=== PATIENT | male | born 1930 | race Caucasian/White ===

== ENCOUNTER 2016-07-14 09:19 | Outpatient (CLI) | payer MEDICARE, OTHER | END 2016-07-14 09:20 | disposition home or self-care (01) | DX: I10 Essential (primary) hypertension (principal); Z79.899 Other long term (current) drug therapy ==

== ENCOUNTER 2016-10-14 11:11 | Emergency (ER) | payer MEDICARE, OTHER ==
[2016-10-14 11:19] VITALS: BP 129/67
--- NOTE | 2016-10-14 11:56 | ED Physician Documentation ---
PD HPI UPPER EXT INJURY - Stated complaint Stated Complaint: GLF L ARM LAC - Chief complaint Chief Complaint: Ext Problem - History obtained from History obtained from: Patient, Family - History of Present Illness Location: Left, Forearm Type of injury: Fall Where injury occurred: Home Timing - onset: Yesterday Timing - duration: Days (1) Timing - details: Gradual onset, Still present Improved by: Rest, Dressing Worsened by: Moving, Palpating Associated symptoms: Discolored. No: Weakness, Numbness, Tingling Contributing factors: No: Anticoagulated Similar symptoms before: Diagnosis (skin tear) Recently seen: Not recently seen - Additonal information Additional information: 86-year-old male with a history of pulmonary hypertension comes into the emergency department today after having a fall yesterday injuring his left forearm. He did not have any other injury related to the fall and he states that he tripped. He has an abrasion to his forearm and he is out of date on his tetanus. He went to go see Dr. Smith yesterday to get a tetanus booster and his office was closed. Today he is here to get the tetanus booster. He was able to dress the wound adequately. He does have a prior history of cellulitis. Review of Systems Constitutional: denies: Fever, Chills, Myalgias Eyes: denies: Decreased vision Ears: denies: Ear pain Nose: denies: Congestion Throat: denies: Sore throat Cardiac: denies: Chest pain / pressure Respiratory: denies: Cough GI: denies: Abdominal Pain, Nausea, Vomiting : denies: Dysuria Skin: denies: Rash Musculoskeletal: reports: Extremity pain. denies: Neck pain, Back pain Neurologic: denies: Generalized weakness, Focal weakness, Difficulty speaking PD PAST MEDICAL HISTORY - Past Medical History Cardiovascular: None Respiratory: Pneumonia Neuro: None Endocrine/Autoimmune: None Psych: None Musculoskeletal: Scoliosis, Chronic back pain - Past Surgical History Past Surgical History: Yes Ortho: Knee replacement - Present Medications Home Medications: Ambulatory Orders Medication Instructions Recorded Confirmed Aspirin/Calcium Carbonate/Mag 325 mg PO DAILY 05/24/13 10/14/16 [Aspirin Non Irrit 325 mg Tab] hydroCHLOROthiazide [Hydrodiuril] 25 mg PO DAILY 10/14/16 10/14/16 - Allergies Allergies/Adverse Reactions: Allergies Allergy/AdvReac Type Severity Reaction Status Date / Time melon Allergy Intermediate Respiratory Uncoded 10/14/16 11:19 - Social History Does the pt smoke?: No Smoking Status: Never smoker Does the pt drink ETOH?: No Does the pt have substance abuse?: No - Immunizations Immunizations are current?: Yes PD ED PE NORMAL - Vitals Vital signs reviewed: Yes (normal ) - General General: No acute distress, Well developed/nourished - HEENT HEENT: Atraumatic, PERRL - Neck Neck: Supple, no meningeal sign - Respiratory Respiratory: No respiratory distress - Derm Derm: Normal color, Warm and dry, No rash - Extremities Extremities: Other (over the volar surface of the left forearm is an area of abrasion with surronding eythema consistent with bruising and no drainage from the area. The abrasions are clean and the wound has no drainage. Distal n/v is intact. ) - Neuro Neuro: No motor deficit, No sensory deficit - Psych Psych: Normal mood, Normal affect Results - Vitals Vitals: Vital Signs - 24 hr 10/14/16 11:17 Temperature 36.3 C L Heart Rate 62 Respiratory 18 Rate Blood Pressure 129/67 O2 Saturation 94 Oxygen O2 Source Room air PD MEDICAL DECISION MAKING - ED course Complexity details: considered differential, d/w patient, d/w family ED course: 86-year-old male with a deep abrasion to his left forearm is out of date on his tetanus. Wound is some erythematous and the patient has had a history of cellulitis previously. He is instructed to return to the emergency department should he develop anything that seems like cellulitis. He is given a tetanus booster. Departure - Departure Disposition: 01 Home, Self Care Clinical Impression: Forearm abrasion Qualifiers: Encounter type: initial encounter Laterality: left Qualified Code(s): S50.812A - Abrasion of left forearm, initial encounter Condition: Stable Instructions: ED Abrasion Follow-Up: Fermín Smith MD [Primary Care Provider] -
[2016-10-14] MEDS ORDERED: TETANUS/DIPHTHERIA/PERTUSSIS 0.5 ML SYRINGE IM ONE ×2 (11:59→12:00)
== END 2016-10-14 12:07 | disposition home or self-care (01) ==
LOC: ED 11:11
DX: S50.812A Abrasion of left forearm, initial encounter (principal); W01.0XXA Fall on same level from slipping, tripping and stumbling without subsequent striking against object, initial encounter; Y92.009 Unspecified place in unspecified non-institutional (private) residence as the place of occurrence of the external cause; Z23 Encounter for immunization; I27.2 Other secondary pulmonary hypertension; Z96.659 Presence of unspecified artificial knee joint; Z79.82 Long term (current) use of aspirin
CPT/HCPCS: 90471; 99283

== ENCOUNTER 2017-07-19 09:16 | Outpatient (CLI) | payer MEDICARE, OTHER ==
[2017-07-19 18:09] LABS: BASOPHILS % (AUTO) 0.5 %; EOSINOPHILS # (AUTO) 0.1 10^3/uL (0.0-0.7); EOSINOPHILS % (AUTO) 1.9 %; HGB - HEMOGLOBIN 14.7 g/dL (14.0-18.0); LYMPHOCYTES # (AUTO) 2.6 10^3/uL (1.5-3.5); LYMPHOCYTES % (AUTO) 51.3 %; MEAN CORPUSCULAR HEMOGLOBIN 32.1 pg (27.0-31.0); MEAN CORPUSCULAR HGB CONC 33.2 g/dL (32.0-36.0); MEAN CORPUSCULAR VOLUME 96.5 fL (80.0-94.0); MEAN PLATELET VOLUME 9.3 fL (7.4-11.4); MONOCYTES # (AUTO) 0.4 10^3/uL (0.0-1.0); MONOCYTES % (AUTO) 7.7 %; NEUTROPHILS % (AUTO) 38.6 %; PLT - PLATELET COUNT 216 10^3/uL (130-450); RED BLOOD COUNT 4.59 10^6/uL (4.70-6.10); RED CELL DISTRIBUTION WIDTH 13.7 % (12.0-15.0); WHITE BLOOD COUNT 5.1 x10^3/uL (4.8-10.8)
[2017-07-19 18:23] LABS: ALBUMIN 4.1 g/dL (3.2-5.5); ALBUMIN/GLOBULIN RATIO 1.6 (1.0-2.2); ALKALINE PHOSPHATASE 46 IU/L (42-121); ALT ALANINE AMINOTRANSFERASE 23 IU/L (10-60); AST ASPARTATE AMINOTRANSFERASE 30 IU/L (10-42); BILIRUBIN,TOTAL 0.7 mg/dL (0.2-1.0); BUN - BLOOD UREA NITROGEN 18 mg/dL (6-20); CALCIUM 9.2 mg/dL (8.5-10.3); CARBON DIOXIDE - CO2 29 mmol/L (21-32); CHLORIDE 102 mmol/L (101-111); CHOL/HDL RATIO 5.4 (<5.0); CHOLESTEROL 198 mg/dL; CREATININE 1.2 mg/dL (0.6-1.2); GFR - MDRD 58 (>89); GLUCOSE 92 mg/dL (70-100); HDL CHOLESTEROL 37 mg/dL; LDL CHOLESTEROL,CALCULATED 126 mg/dL; LDL/HDL RATIO 3.4 (<3.6); SODIUM 137 mmol/L (135-145); TOTAL PROTEIN 6.7 g/dL (6.7-8.2); VLDL CHOLESTEROL 35 mg/dL
== END 2017-07-19 09:17 | disposition home or self-care (01) ==
LOC: LAB.F 09:16
PROVIDERS: ATTEND Internal Medicine
DX: I34.0 Nonrheumatic mitral (valve) insufficiency (principal); E78.5 Hyperlipidemia, unspecified; I27.20 Pulmonary hypertension, unspecified
CPT/HCPCS: 36415; 80053; 80061; 83721; 85025

== ENCOUNTER 2018-10-14 10:24 | Outpatient (CLI) | payer MEDICARE, OTHER ==
[2018-10-14 10:39] LABS: BASOPHILS % (AUTO) 0.5 %; EOSINOPHILS # (AUTO) 0.1 10^3/uL (0.0-0.7); EOSINOPHILS % (AUTO) 1.1 %; HGB - HEMOGLOBIN 14.7 g/dL (14.0-18.0); LYMPHOCYTES # (AUTO) 2.9 10^3/uL (1.5-3.5); LYMPHOCYTES % (AUTO) 47.9 %; MEAN CORPUSCULAR HEMOGLOBIN 32.4 pg (27.0-31.0); MEAN CORPUSCULAR HGB CONC 33.4 g/dL (32.0-36.0); MEAN CORPUSCULAR VOLUME 96.9 fL (80.0-94.0); MEAN PLATELET VOLUME 9.7 fL (7.4-11.4); MONOCYTES # (AUTO) 0.6 10^3/uL (0.0-1.0); MONOCYTES % (AUTO) 9.3 %; NEUTROPHILS # (AUTO) 2.5 10^3/uL (1.5-6.6); NEUTROPHILS % (AUTO) 40.7 %; PLT - PLATELET COUNT 231 10^3/uL (130-450); RED BLOOD COUNT 4.54 10^6/uL (4.70-6.10); RED CELL DISTRIBUTION WIDTH 13.8 % (12.0-15.0); WHITE BLOOD COUNT 6.1 x10^3/uL (4.8-10.8)
[2018-10-14 10:57] LABS: ALBUMIN 4.3 g/dL (3.2-5.5); ALBUMIN/GLOBULIN RATIO 1.7 (1.0-2.2); BILIRUBIN,TOTAL 0.8 mg/dL (0.2-1.0); CALCIUM 9.5 mg/dL (8.5-10.3); CREATININE 1.2 mg/dL (0.6-1.2); TOTAL PROTEIN 6.9 g/dL (6.7-8.2)
[2018-10-14 11:33] LABS: THYROID STIMULATING HORMONE 4.13 uIU/mL (0.34-5.60)
[2018-10-14 11:35] LABS: FREE T4 (FREE THYROXINE) 0.64 ng/dL (0.58-1.64)
== END 2018-10-14 10:25 | disposition home or self-care (01) ==
LOC: LAB 10:24
PROVIDERS: ATTEND Family Medicine
DX: R63.4 Abnormal weight loss (principal)
CPT/HCPCS: 36415; 80053; 84439; 84443; 84481; 85025

== ENCOUNTER 2019-04-20 11:45 | Emergency (ER) | payer MEDICARE, OTHER ==
[2019-04-20 12:01] VITALS: BP 139/65
--- NOTE | 2019-04-20 13:07 | ED Physician Documentation ---
PD HPI HEENT - Stated complaint Stated Complaint: L EAR PX - Chief complaint Chief Complaint: Heent - History obtained from History obtained from: Patient - History of Present Illness Timing - onset: Other (About 2 weeks of left ear pain without temporal pain or difficulty hearing, the pain does radiate a little bit towards the eye. He has had temporal arteritis a couple of times and worries about a recurrence but admits this feels different. No new visual deficit.) Review of Systems Constitutional: denies: Fever, Chills Eyes: denies: Loss of vision, Decreased vision, Photophobia, Discharge, Irritation Ears: reports: Ear pain. denies: Loss of hearing, Drainage/discharge Nose: denies: Rhinorrhea / runny nose PD PAST MEDICAL HISTORY - Past Medical History Cardiovascular: None Respiratory: Pneumonia Endocrine/Autoimmune: None Psych: None Musculoskeletal: Scoliosis, Chronic back pain - Past Surgical History Past Surgical History: Yes Ortho: Knee replacement - Present Medications Home Medications: Ambulatory Orders Medication Instructions Recorded Confirmed Aspirin/Calcium Carbonate/Mag 325 mg PO DAILY 05/24/13 10/14/16 [Aspirin Non Irrit 325 mg Tab] hydroCHLOROthiazide [Hydrodiuril] 25 mg PO DAILY 10/14/16 10/14/16 Amoxicillin 500 mg PO TID #30 capsule 04/20/19 - Allergies Allergies/Adverse Reactions: Allergies Allergy/AdvReac Type Severity Reaction Status Date / Time bee pollen Allergy Unknown Verified 04/20/19 11:59 melon Allergy Intermediate Respiratory Uncoded 04/20/19 11:59 - Social History Does the pt smoke?: No Smoking Status: Never smoker Does the pt drink ETOH?: No Does the pt have substance abuse?: No - Immunizations Immunizations are current?: Yes PD ED PE NORMAL - Vitals Vital signs reviewed: Yes - General General: Alert and oriented X 3, No acute distress - HEENT HEENT: Other (Does have moderate left otitis media, there is no tenderness of the temporal artery.) - Neck Neck: Supple, no meningeal sign, No bony TTP - Neuro Neuro: Alert and oriented X 3, Normal speech Results - Vitals Vitals: Vital Signs - 24 hr 04/20/19 11:59 Temperature 36.6 C Heart Rate 70 Respiratory 18 Rate Blood Pressure 139/65 H O2 Saturation 96 Oxygen O2 Source Room air PD MEDICAL DECISION MAKING - ED course ED course: He was concerned about temporal arteritis but does have a left otitis media which I think is causative. I offered to do a sed rate regardless which she declined and will follow up with his doctor if not better. Departure - Departure Disposition: 01 Home, Self Care Clinical Impression: LOM (left otitis media) Qualifiers: Otitis media type: suppurative Chronicity: acute Recurrence: non-recurrent Spontaneous tympanic membrane rupture: without spontaneous rupture Qualified Code(s): H66.002 - Acute suppurative otitis media without spontaneous rupture of ear drum, left ear Condition: Good Record reviewed to determine appropriate education?: Yes Instructions: ED Otitis Media Acute Adult Prescriptions: Amoxicillin 500 mg PO TID #30 capsule Comments: Recheck with your doctor in a week if not better, return for new or worsening symptoms.
== END 2019-04-20 13:10 | disposition home or self-care (01) ==
LOC: ED 11:45
DX: H66.002 Acute suppurative otitis media without spontaneous rupture of ear drum, left ear (principal)
CPT/HCPCS: 99282; 99283

== ENCOUNTER 2019-05-06 11:33 | Outpatient (CLI) | payer MEDICARE, OTHER ==
[2019-05-06 11:59] LABS: HGB - HEMOGLOBIN 14.6 g/dL (14.0-18.0); MEAN CORPUSCULAR HEMOGLOBIN 32.2 pg (27.0-31.0); MEAN CORPUSCULAR HGB CONC 33.1 g/dL (32.0-36.0); MEAN CORPUSCULAR VOLUME 97.1 fL (80.0-94.0); MEAN PLATELET VOLUME 9.8 fL (7.4-11.4); RED BLOOD COUNT 4.54 10^6/uL (4.70-6.10); RED CELL DISTRIBUTION WIDTH 13.4 % (12.0-15.0); WHITE BLOOD COUNT 7.5 x10^3/uL (4.8-10.8)
== END 2019-05-06 11:34 | disposition home or self-care (01) ==
LOC: LAB 11:33
PROVIDERS: ATTEND Family Medicine
DX: Z79.899 Other long term (current) drug therapy (principal); H66.90 Otitis media, unspecified, unspecified ear
CPT/HCPCS: 36415; 85027; 85651

== ENCOUNTER 2019-05-09 03:02 | Outpatient (CLI) | payer MEDICARE, OTHER | END 2019-05-09 03:03 | disposition critical access hospital (66) | LOC: EMS 03:02 | PROVIDERS: ATTEND Surgery | DX: R42 Dizziness and giddiness (principal); R11.0 Nausea; R61 Generalized hyperhidrosis | CPT/HCPCS: A0425; A0427 ==

== ENCOUNTER 2019-05-09 03:20 | Emergency (ER) | payer MEDICARE, OTHER ==
[2019-05-09] MEDS ORDERED: SODIUM CHLORIDE 0.9% 1,000 ML IV ONE (03:25)
--- NOTE | 2019-05-09 03:57 | ED Physician Documentation ---
History of Present Illness - Stated complaint Stated Complaint: DIZZY - Chief complaint Chief Complaint: Neuro - History obtained from History obtained from: Patient, Family - History of Present Illness Timing: How many hours ago (approximately 1 hour TAPE SEWER) Pain level now: 3 (left ear) Improved by: rest, IV fluids and zofran (given en route by medics) Worsened by: movement, particularly with turning head - Additonal information Additional information: BIBA for nausea and dizziness. T+R from this ED 04/20 for left OM, was prescribed amoxicillin (completed course 1 week ago). He has had ongoing left ear pain and followed up with PMD few days ago, referred to ENT (initial appointment isn't for a few weeks). Tonight, approximately 1 hour TAPE SEWER, patient got out of bed to use bathroom and had sudden onset of dizziness, sensation of room spinning, associated with nausea. EMS found patient to have SBP in 80s, given IV fluids en route and zofran with improvement in symptoms and resolution of hypotension Review of Systems Constitutional: denies: Fever, Chills, Sweats Ears: reports: Ear pain. denies: Drainage/discharge Cardiac: reports: Reviewed and negative Respiratory: reports: Reviewed and negative GI: reports: Nausea. denies: Abdominal Pain, Vomiting : denies: Dysuria, Frequency Musculoskeletal: denies: Neck pain Neurologic: denies: Generalized weakness, Focal weakness, Numbness, Confused, Altered mental status, Headache, Head injury PD PAST MEDICAL HISTORY - Past Medical History Cardiovascular: None Respiratory: Pneumonia Endocrine/Autoimmune: None Psych: None Musculoskeletal: Scoliosis, Chronic back pain - Past Surgical History Past Surgical History: Yes Ortho: Knee replacement - Present Medications Home Medications: Ambulatory Orders Medication Instructions Recorded Confirmed Meclizine HCl 25 mg PO Q6HR PRN #20 tablet 05/09/19 Ondansetron Odt [Zofran] 4 mg TL Q6H PRN #10 tablet 05/09/19 - Allergies Allergies/Adverse Reactions: Allergies Allergy/AdvReac Type Severity Reaction Status Date / Time bee pollen Allergy Unknown Verified 05/09/19 03:25 melon Allergy Intermediate Respiratory Uncoded 05/09/19 03:25 - Social History Does the pt smoke?: No Smoking Status: Never smoker Does the pt drink ETOH?: No Does the pt have substance abuse?: No - Immunizations Immunizations are current?: Yes PD ED PE NORMAL - Vitals Vital signs reviewed: Yes - General General: Alert and oriented X 3, No acute distress (NAD at rest but appears to be uncomfortable with movement/rotation of head), Well developed/nourished - HEENT HEENT: PERRL, EOMI, Moist mucous membranes, Other (left TM is dull but without bulging or erythema. normal left external auditory canal. right TM mostly obscured by cerumen, but superior-most portion is visible and unremarkable appearance. Moderate amount of cerumen in right external auditory canal with small amount of dried blood in cerumen (he says PMD recently tried to manually extract cerumen)) - Neck Neck: Supple, no meningeal sign - Cardiac Cardiac: RRR, No murmur - Respiratory Respiratory: No respiratory distress, Clear bilaterally - Abdomen Abdomen: Soft, Non tender - Neuro Neuro: Alert and oriented X 3, hand packager 2-12 intact, No motor deficit, No sensory deficit, Normal speech Eye Opening: Spontaneous Motor: Obeys Commands Verbal: Oriented GCS Score: 15 Results - Vitals Vitals: Oxygen O2 Source Room air - Labs Labs: Laboratory Tests 05/09/19 05/09/19 04:35 04:35 WBC 7.2 RBC 4.05 L Hgb 13.0 L Hct 39.5 L MCV 97.5 H MCH 32.1 H MCHC 32.9 RDW 13.8 Plt Count 266 MPV 9.6 Neut # (Auto) 4.9 Lymph # (Auto) 1.6 [place] # (Auto) 0.5 Eos # (Auto) 0.2 Baso # (Auto) 0.0 Absolute Nucleated RBC 0.00 Nucleated RBC % 0.0 Sodium 139 Potassium 4.1 Chloride 103 Carbon Dioxide 27 Anion Gap 9.0 BUN 23 H Creatinine 1.1 Estimated GFR (MDRD) 63 L Glucose 114 H Calcium 8.6 Total Bilirubin 0.9 AST 20 ALT 15 Alkaline Phosphatase 50 Total Protein 6.4 L Albumin 3.7 Globulin 2.7 Albumin/Globulin Ratio 1.4 Lipase 37 PD MEDICAL DECISION MAKING - ED course Complexity details: reviewed results, re-evaluated patient, considered differential, d/w patient, d/w family ED course: modest improvement in symptoms with PO antivert and IV fluids in ED. He continued to have symptoms (dizziness and nausea s/o vertigo) that were distinctly positional and movement-related. Barany maneuvers unsuccessful on first attempt, although on repeat attempt, there was improvement and he was appropriate for discharge Departure - Departure Disposition: 01 Home, Self Care Clinical Impression: Vertigo Condition: Good Instructions: Meclizine, ED Vertigo Unspecified Follow-Up: Bruce Dimas MD [Primary Care Provider] - Prescriptions: Meclizine HCl 25 mg PO Q6HR PRN #20 tablet PRN Reason: Vertigo Ondansetron Odt [Zofran] 4 mg TL Q6H PRN #10 tablet PRN Reason: Nausea / Vomiting Comments: You can try the Kayley maneuver for vertigo. There are many useful videos on Youtube that demonstrate how to perform this at home, such as the [facility] kayley maneuver for left ear video. Discharge Date/Time: 05/09/19 07:50
[2019-05-09] MEDS ORDERED: MECLIZINE 12.5 MG TABLET PO STA (04:25)
[2019-05-09] MEDS ORDERED: ONDANSETRON 4 MG/2 ML VIAL IVP STA (04:26)
[2019-05-09 04:41] LABS: BASOPHILS % (AUTO) 0.4 %; EOSINOPHILS # (AUTO) 0.2 10^3/uL (0.0-0.7); EOSINOPHILS % (AUTO) 2.1 %; LYMPHOCYTES # (AUTO) 1.6 10^3/uL (1.5-3.5); LYMPHOCYTES % (AUTO) 21.4 %; MEAN CORPUSCULAR HEMOGLOBIN 32.1 pg (27.0-31.0); MEAN CORPUSCULAR HGB CONC 32.9 g/dL (32.0-36.0); MEAN CORPUSCULAR VOLUME 97.5 fL (80.0-94.0); MEAN PLATELET VOLUME 9.6 fL (7.4-11.4); MONOCYTES # (AUTO) 0.5 10^3/uL (0.0-1.0); MONOCYTES % (AUTO) 7.5 %; NEUTROPHILS # (AUTO) 4.9 10^3/uL (1.5-6.6); NEUTROPHILS % (AUTO) 68.2 %; PLT - PLATELET COUNT 266 10^3/uL (130-450); RED BLOOD COUNT 4.05 10^6/uL (4.70-6.10); RED CELL DISTRIBUTION WIDTH 13.8 % (12.0-15.0); WHITE BLOOD COUNT 7.2 x10^3/uL (4.8-10.8)
[2019-05-09 04:56] LABS: ALBUMIN 3.7 g/dL (3.2-5.5); ALBUMIN/GLOBULIN RATIO 1.4 (1.0-2.2); BILIRUBIN,TOTAL 0.9 mg/dL (0.2-1.0); CALCIUM 8.6 mg/dL (8.5-10.3); CREATININE 1.1 mg/dL (0.6-1.2); TOTAL PROTEIN 6.4 g/dL (6.7-8.2)
[2019-05-09] MEDS ORDERED: SODIUM CHLORIDE 0.9% 1,000 ML IV STA (05:42)
[2019-05-09 07:54] VITALS: BP 139/71
== END 2019-05-09 07:50 | disposition home or self-care (01) ==
LOC: EDUNIT# → ED 03:20
DX: R42 Dizziness and giddiness (principal); R11.0 Nausea; H61.21 Impacted cerumen, right ear
CPT/HCPCS: 36415; 80053; 83690; 85025; 96361; 96374; 99284; A9270

== ENCOUNTER 2020-01-15 17:18 | Outpatient (CLI) | payer MEDICARE, OTHER | END 2020-01-15 17:19 | disposition home or self-care (01) | LOC: COV 17:18 | PROVIDERS: ATTEND Family Medicine | DX: R53.83 Other fatigue (principal); R09.89 Other specified symptoms and signs involving the circulatory and respiratory systems; Z20.828 Contact with and (suspected) exposure to other viral communicable diseases ==

== ENCOUNTER 2020-03-06 12:42 | Emergency (ER) | payer MEDICARE, OTHER ==
[2020-03-06] MEDS ORDERED: PROPARACAINE 0.5% OPHTH DROPS 15 ML LEFTEYE STA (13:05)
--- NOTE | 2020-03-06 13:06 | ED Physician Documentation ---
PD HPI OPHTHO - Stated complaint Stated Complaint: LT EYE PX - Chief complaint Chief Complaint: Heent - History obtained from History obtained from: Patient - Additional information Additional information: 89-year-old gentleman had an eye problem a few weeks ago and was treated with topical steroids to the right eye by his eye doctor and resolved. About a week ago the left eye became red and progressively draining clear fluid with slightly blurry vision. Over the last few days it become much more painful. He denies fevers. He was seen first at the urgent care and was referred here for concern for possible orbital cellulitis. Review of Systems Constitutional: reports: Reviewed and negative Eyes: reports: Reviewed and negative Ears: reports: Reviewed and negative Nose: reports: Reviewed and negative Throat: reports: Reviewed and negative PD PAST MEDICAL HISTORY - Past Medical History Past Medical History: Yes Cardiovascular: None Respiratory: Pneumonia Neuro: Peripheral neuropathy Endocrine/Autoimmune: None Psych: None Musculoskeletal: Scoliosis, Chronic back pain - Past Surgical History Past Surgical History: Yes Ortho: Knee replacement - Present Medications Home Medications: Ambulatory Orders Medication Instructions Recorded Confirmed Amox/Clav 875/125 [Augmentin] 1 each PO Q12H #14 tablet 03/06/20 Carbidopa/Levodopa 10/100 [Sinemet 1 each PO TID 03/06/20 03/06/20 10 mg/100 mg] Tobramycin/Dexamethasone [Tobradex 1 drops OP QID 7 Days drops.susp 03/06/20 Eye Drops] - Allergies Allergies/Adverse Reactions: Allergies Allergy/AdvReac Type Severity Reaction Status Date / Time bee pollen Allergy Unknown Verified 03/06/20 12:46 melon Allergy Intermediate Respiratory Uncoded 03/06/20 12:46 - Social History Does the pt smoke?: No Smoking Status: Never smoker Does the pt drink ETOH?: No Does the pt have substance abuse?: No - Immunizations Immunizations are current?: Yes PD ED PE NORMAL - Vitals Vital signs reviewed: Yes - General General: Alert and oriented X 3, No acute distress - HEENT HEENT: EOMI (Keron-Pen on the left is 17, no cell or flare in the anterior chamber.), Other (Both eyes are equally reactive with round pupils of normal size about 3 mm. He has a beet red conjunctivitis of the left eye with mild swelling of the periorbital area on the left. No pain with extraocular movements. Finger counting at 10 feet is intact.) - Neck Neck: Supple, no meningeal sign, No bony TTP - Cardiac Cardiac: RRR, No murmur - Respiratory Respiratory: No respiratory distress, Clear bilaterally - Abdomen Abdomen: Non tender - Neuro Neuro: Alert and oriented X 3, Normal speech Results - Vitals Vitals: Vital Signs - 24 hr 03/06/20 03/06/20 12:46 15:08 Temperature 36.5 C 36.8 C Heart Rate 55 L 60 Respiratory 16 16 Rate Blood Pressure 149/67 H 144/72 H O2 Saturation 97 97 Oxygen O2 Source Room air - Labs Labs: Laboratory Tests 03/06/20 03/06/20 03/06/20 12:46 13:19 13:19 WBC 8.0 RBC 4.59 L Hgb 14.6 Hct 44.7 MCV 97.4 H MCH 31.8 H MCHC 32.7 RDW 13.6 Plt Count 254 MPV 9.8 Neut # (Auto) 3.9 Lymph # (Auto) 3.3 [place] # (Auto) 0.7 Eos # (Auto) 0.1 Baso # (Auto) 0.1 Absolute Nucleated RBC 0.00 Nucleated RBC % 0.0 ESR 14 Sodium 140 Potassium 3.9 Chloride 100 L Carbon Dioxide 27 Anion Gap 13.0 BUN 19 Creatinine 1.1 Estimated GFR (MDRD) 63 L Glucose 89 Lactic Acid Calcium 9.6 C-Reactive Protein < 1.0 03/06/20 13:19 WBC RBC Hgb Hct MCV MCH MCHC RDW Plt Count MPV Neut # (Auto) Lymph # (Auto) [place] # (Auto) Eos # (Auto) Baso # (Auto) Absolute Nucleated RBC Nucleated RBC % ESR Sodium Potassium Chloride Carbon Dioxide Anion Gap BUN Creatinine Estimated GFR (MDRD) Glucose Lactic Acid 0.9 Calcium C-Reactive Protein PD MEDICAL DECISION MAKING - ED course ED course: 89-year-old gentleman presents with an acute left red eye. His vision is unaffected. Appears more like a terrible conjunctivitis than anything else. No clinical evidence of iritis but does states that a previous episode that was similar was treated with topical steroids. Sent from an urgent care for concern for orbital cellulitis and there is no evidence of this on work-up including CT of the orbits with contrast and labs. He was treated with topical TobraDex and Augmentin pending ophthalmologic follow-up. Departure - Departure Disposition: Home, Self Care Clinical Impression: Facial cellulitis Conjunctivitis, left eye Qualifiers: Conjunctivitis type: acute Acute conjunctivitis type: bacterial Qualified Code(s): H10.32 - Unspecified acute conjunctivitis, left eye Condition: Good Record reviewed to determine appropriate education?: Yes Instructions: ED Cellulitis Facial Prescriptions: Amox/Clav 875/125 [Augmentin] 1 each PO Q12H #14 tablet Tobramycin/Dexamethasone [Tobradex Eye Drops] 1 drops OP QID 7 Days drops.susp Comments: Followup with your eye doctor on around Sunday for recheck. Return if worsening. Discharge Date/Time: 03/06/20 15:11
[2020-03-06 13:26] LABS: BASOPHILS # (AUTO) 0.1 10^3/uL (0.0-0.1); BASOPHILS % (AUTO) 0.6 %; EOSINOPHILS # (AUTO) 0.1 10^3/uL (0.0-0.7); EOSINOPHILS % (AUTO) 1.2 %; HGB - HEMOGLOBIN 14.6 g/dL (14.0-18.0); LYMPHOCYTES # (AUTO) 3.3 10^3/uL (1.5-3.5); LYMPHOCYTES % (AUTO) 41.3 %; MEAN CORPUSCULAR HEMOGLOBIN 31.8 pg (27.0-31.0); MEAN CORPUSCULAR HGB CONC 32.7 g/dL (32.0-36.0); MEAN CORPUSCULAR VOLUME 97.4 fL (80.0-94.0); MEAN PLATELET VOLUME 9.8 fL (7.4-11.4); MONOCYTES # (AUTO) 0.7 10^3/uL (0.0-1.0); MONOCYTES % (AUTO) 8.1 %; NEUTROPHILS # (AUTO) 3.9 10^3/uL (1.5-6.6); NEUTROPHILS % (AUTO) 48.6 %; PLT - PLATELET COUNT 254 10^3/uL (130-450); RED BLOOD COUNT 4.59 10^6/uL (4.70-6.10); RED CELL DISTRIBUTION WIDTH 13.6 % (12.0-15.0)
[2020-03-06] MEDS ORDERED: IOVERSOL 320 100 ML VIAL IVP ONE ×2 (13:31→14:55)
[2020-03-06 14:06] LABS: BUN - BLOOD UREA NITROGEN 19 mg/dL (6-20); CALCIUM 9.6 mg/dL (8.5-10.3); CARBON DIOXIDE - CO2 27 mmol/L (21-32); CHLORIDE 100 mmol/L (101-111); CREATININE 1.1 mg/dL (0.6-1.2); GLUCOSE 89 mg/dL (70-100); SODIUM 140 mmol/L (135-145)
[2020-03-06 14:18] LABS: CRP - C-REACTIVE PROTEIN < 1.0 mg/dL (0-1.0)
--- NOTE | 2020-03-06 14:59 | CT Report ---
PROCEDURE: ORBITS W INDICATIONS: facial pain, poss orbital cellulitis CONTRAST: IV CONTRAST: Optiray 320 ml: 100 PO CONTRAST: *NO PO CONTRAST TECHNIQUE: After the administration of intravenous contrast, 3.0 mm axial images acquired through the orbits, wi th coronal reformatting. COMPARISON: None FINDINGS: Image quality: Excellent. Orbits: Globes are symmetrical. The optic nerves are normal in size and enhancement. No retrobulba r masses or fat abnormalities. The extra-ocular muscles are normal and symmetrical in appearance. L acrimal glands are normal. Optic chiasm is normal. Periorbital soft tissues are normal. Intracranial: The pituitary gland is normal, without sellar or suprasellar masses. Visualized cereb ral hemispheres, brainstem, and spinal cord appear normal. Bones and sinuses: Visualized calvarium and facial bones appear intact. Visualized sinuses and mast oids are clear. IMPRESSION: Negative evaluation of the orbits. Reviewed by: Lisa Waddell MD on 03/06/2020 2:58 PM PST Approved by: Lisa Waddell MD on 03/06/2020 2:58 PM PST Station ID: [id number]
[2020-03-06 15:09] VITALS: BP 144/72
== END 2020-03-06 15:11 | disposition home or self-care (01) ==
LOC: ED 12:42
DX: H10.32 Unspecified acute conjunctivitis, left eye (principal); L03.211 Cellulitis of face
CPT/HCPCS: 36415; 70481; 80048; 83605; 85025; 85651; 86140; 87040; 99284; J3490; Q9967

== ENCOUNTER 2020-07-06 21:48 | Emergency (ER) | payer MEDICARE, OTHER ==
--- NOTE | 2020-07-06 22:28 | ED Physician Documentation ---
History of Present Illness - Stated complaint Stated Complaint: MALE - Chief complaint Chief Complaint: General - History obtained from History obtained from: Patient - Additonal information Additional information: 89-year-old man presents with acute urinary retention after his shoulder surgery yesterday. He states that he was given a local nerve block and has been unable to void since surgery. otherwise asymptomatic. Review of Systems : reports: Unable to Void PD PAST MEDICAL HISTORY - Past Medical History Past Medical History: Yes Cardiovascular: None Respiratory: Pneumonia Neuro: Peripheral neuropathy Endocrine/Autoimmune: None GI: None : None HEENT: None Psych: None Musculoskeletal: Scoliosis, Chronic back pain Derm: None - Past Surgical History Past Surgical History: Yes Ortho: Knee replacement, Shoulder arthroplasty - Present Medications Home Medications: Ambulatory Orders Medication Instructions Recorded Confirmed Carbidopa/Levodopa 10/100 [Sinemet 1 each PO TID 03/06/20 03/06/20 10 mg/100 mg] Tobramycin/Dexamethasone [Tobradex 1 drops OP QID 7 Days drops.susp 03/06/20 Eye Drops] Tamsulosin HCl [Flomax] 0.4 mg PO QDAC 14 Days #14 tab 07/06/20 - Allergies Allergies/Adverse Reactions: Allergies Allergy/AdvReac Type Severity Reaction Status Date / Time bee venom protein (honey bee) Allergy Anaphylaxis Verified 07/06/20 22:00 melon Allergy Intermediate Respiratory Uncoded 03/06/20 12:46 - Social History Does the pt smoke?: No Smoking Status: Never smoker Does the pt drink ETOH?: No Does the pt have substance abuse?: No - Immunizations Immunizations are current?: Yes PD ED PE NORMAL - Vitals Vital signs reviewed: Yes - General General: Alert and oriented X 3, No acute distress, Well developed/nourished - HEENT HEENT: Atraumatic, PERRL, EOMI - Abdomen Abdomen: Non tender, Other (distended palpable bladder) - Male Male : Other (normal sensation to groin) - Derm Derm: Normal color - Neuro Neuro: Alert and oriented X 3 Results - Vitals Vitals: Vital Signs - 24 hr 07/06/20 21:55 Temperature 36.3 C L Heart Rate 72 Respiratory 14 Rate Blood Pressure 143/59 H O2 Saturation 96 Oxygen O2 Source Room air PD MEDICAL DECISION MAKING - ED course ED course: Discussed option of in and out catheterization versus a Ziegler catheter and the patient would like to trial an in and out cath. He will try to pee tomorrow and will return to the emergency department if he is unable to do so. Flomax prescription provided. Return precautions given. Patient will follow up with his surgeon and primary doctor. Departure - Departure Disposition: 01 Home, Self Care Clinical Impression: Urinary retention Condition: Good Instructions: ED Retention Urinary Male Prescriptions: Tamsulosin HCl [Flomax] 0.4 mg PO QDAC 14 Days #14 tab Comments: You were seen in the emergency department for acute urinary retention. We did an in and out catheterization and drained over 1000 mL of urine. Please return to the emergency department if you cannot pee tomorrow. Please follow-up with your primary doctor and with your surgeon.
[2020-07-06 23:16] VITALS: BP 119/67
--- OUTSIDE RECORDS SUMMARY | 2020-07-07 03:27 | EXTERNAL MEDICAL SUMMARY RPT | Continuity of Care Document ---
:1930 Demographics Phone Unavailable Preferred Language French Marital Status Unknown Amish Affiliation Unknown Race Unknown Ethnic Group Unknown Author Organization [facility] Address [address] [phone] Phone Care Team Providers Name Role Phone Bruce Dimas Unavailable Unavailable Problems date description facility [id number] Primary osteoarthritis, [facility] [id number] Encounter for other preprocedural exami [facility] [id number] Encounter for preprocedural laboratory examination [facility] [id number] Hyperglycemia, unspecified [facility] [id number] Pain in [facility] [id number] Contact with and (suspected) exposure t [address] [id number] Primary osteoarthritis, [facility] Medications date description facility [id number] Oxycodone Hydrochloride 5 MG Oral Table [facility] [id number] Carbidopa 25 MG / Levodopa 100 MG Oral Tablet [facility] [id number] Acetaminophen 325 MG Oral Tablet [facility] Procedures date description facility [id number] [facility] date description facility [id number] [facility] date description facility [id number] [facility] date description facility [id number] [facility] Vital Signs date measurement value source 20200705 BMI 27.1 kg/m2 20200705 height_metric 177.8 cm 20200705 height_standard 70 in 20200705 weight_metric 85.72 kg [id number] weight_standard 188.98 lb date measurement value source [id number] BP_diastolic 68 mm[Hg] 20200706 BP_systolic 136 mm[Hg] 20200706 heart_rate 69 /min 20200706 respiration_rate 15 /min 20200706 temperature_metric 36 C 20200706 temperature_standard 96.8 F Social History date description facility [id number]
--- OUTSIDE RECORDS SUMMARY | 2020-07-07 03:27 | EXTERNAL MEDICAL SUMMARY RPT | Continuity of Care Document ---
:1930 Demographics Phone Unavailable Preferred Language Australian Marital Status Unknown Mandaen Affiliation Unknown Race Unknown Ethnic Group Unknown Author Organization [place] Address [address] [phone] Phone Care Team Providers Name Role Phone Bruce Dimas Unavailable Unavailable Problems date description facility [id number] Primary osteoarthritis, [facility] [id number] Encounter for other preprocedural exami [facility] [id number] Encounter for preprocedural laboratory examination [facility] [id number] Hyperglycemia, unspecified [facility] [id number] Pain in [facility] [id number] Contact with and (suspected) exposure t [address] 20200705 Primary osteoarthritis, [facility] Medications date description facility [id number] Oxycodone Hydrochloride 5 MG Oral Table [facility] 20200706 Carbidopa 25 MG / Levodopa 100 MG Oral Tablet [facility] 20200706 Acetaminophen 325 MG Oral Tablet [facility] Procedures date description facility 20200428 [facility] date description facility [id number] [facility] date description facility [id number] [facility] date description facility 20200705 [facility] Vital Signs date measurement value source 20200705 BMI 27.1 kg/m2 20200705 height_metric 177.8 cm 20200705 height_standard 70 in 20200705 weight_metric 85.72 kg [id number] weight_standard 188.98 lb date measurement value source 20200706 BP_diastolic 68 mm[Hg] 20200706 BP_systolic 136 mm[Hg] 20200706 heart_rate 69 /min 20200706 respiration_rate 15 /min 20200706 temperature_metric 36 C 20200706 temperature_standard 96.8 F Social History date description facility [id number]
== END 2020-07-06 23:15 | disposition home or self-care (01) ==
LOC: ED 21:48 → SUPCPDRO 21:48 → ED 23:15
DX: R33.9 Retention of urine, unspecified (principal)
CPT/HCPCS: 51701; 51798; 99281; 99283

== ENCOUNTER 2021-07-22 08:00 | Outpatient (CLI) | payer MEDICARE, OTHER | END 2021-07-22 23:59 | disposition home or self-care (01) | LOC: LAB.S 08:00 | PROVIDERS: ATTEND Physician Assistant | DX: M31.6 Other giant cell arteritis (principal); G50.1 Atypical facial pain | CPT/HCPCS: 36415; 85651; 86140 ==

== ENCOUNTER 2021-09-19 08:00 | Outpatient (CLI) | payer MEDICARE, OTHER ==
--- NOTE | 2021-09-19 18:01 | XRAY Report ---
PROCEDURE: Chest 2 View X-Ray INDICATIONS: EXERTIONAL SHORTNESS OF BREATH TECHNIQUE: 2 view(s) of the chest. COMPARISON: None. FINDINGS: Surgical changes and devices: Right shoulder arthroplasty has been performed, new since the prior exa mination. Lungs and pleura: No pleural effusions or pneumothorax. Lungs are clear. Mediastinum: Mediastinal contours are normal. Heart size is normal. Bones and chest wall: No suspicious bony abnormalities. Soft tissues appear unremarkable. IMPRESSION: No acute process. Reviewed by: Lisa Waddell MD on 09/19/2021 5:59 PM PDT Approved by: Lisa Waddell MD on 09/19/2021 5:59 PM PDT Station ID: [id number]
== END 2021-09-19 23:59 | disposition home or self-care (01) ==
LOC: DI.S 08:00
PROVIDERS: ATTEND Physician Assistant Medical
DX: R06.09 Other forms of dyspnea (principal)

== ENCOUNTER 2021-10-25 12:58 | Outpatient (CLI) | payer MEDICARE, OTHER ==
[2021-10-25] MEDS ORDERED: ALBUTEROL 1 PUFF INH STA (14:28)
== END 2021-10-25 12:59 | disposition home or self-care (01) ==
LOC: RT 12:58
PROVIDERS: ATTEND Internal Medicine
DX: R06.09 Other forms of dyspnea (principal)
CPT/HCPCS: 94060; 94729

== ENCOUNTER 2021-12-10 11:38 | Outpatient (CLI) | payer MEDICARE, OTHER ==
[2021-12-10 12:05] LABS: BASOPHILS # (AUTO) 0.1 10^3/uL (0.0-0.1); BASOPHILS % (AUTO) 0.9 %; EOSINOPHILS # (AUTO) 0.1 10^3/uL (0.0-0.7); EOSINOPHILS % (AUTO) 1.6 %; HGB - HEMOGLOBIN 14.4 g/dL (14.0-18.0); LYMPHOCYTES # (AUTO) 2.7 10^3/uL (1.5-3.5); LYMPHOCYTES % (AUTO) 48.8 %; MEAN CORPUSCULAR HEMOGLOBIN 35.1 pg (27.0-31.0); MEAN CORPUSCULAR HGB CONC 33.5 g/dL (32.0-36.0); MEAN CORPUSCULAR VOLUME 104.9 fL (80.0-94.0); MEAN PLATELET VOLUME 9.2 fL (7.4-11.4); MONOCYTES # (AUTO) 0.5 10^3/uL (0.0-1.0); MONOCYTES % (AUTO) 8.4 %; NEUTROPHILS # (AUTO) 2.2 10^3/uL (1.5-6.6); NEUTROPHILS % (AUTO) 39.6 %; PLT - PLATELET COUNT 216 10^3/uL (130-450); WHITE BLOOD COUNT 5.6 x10^3/uL (4.8-10.8)
[2021-12-10 12:38] LABS: ALKALINE PHOSPHATASE 48 IU/L (42-121); ALT ALANINE AMINOTRANSFERASE 17 IU/L (10-60); AST ASPARTATE AMINOTRANSFERASE 29 IU/L (10-42); BILIRUBIN,TOTAL 1.1 mg/dL (0.2-1.0); BUN - BLOOD UREA NITROGEN 24 mg/dL (6-20); CALCIUM 9.3 mg/dL (8.5-10.3); CARBON DIOXIDE - CO2 32 mmol/L (21-32); CHLORIDE 98 mmol/L (101-111); CREATININE 1.3 mg/dL (0.6-1.2); GFR - MDRD 52 (>89); GLUCOSE 112 mg/dL (70-100); POTASSIUM 3.7 mmol/L (3.5-5.0); SODIUM 138 mmol/L (135-145)
[2021-12-10 12:45] LABS: CRP - C-REACTIVE PROTEIN < 1.0 mg/dL (0-1.0)
== END 2021-12-10 11:39 | disposition home or self-care (01) ==
LOC: LAB 11:38
PROVIDERS: ATTEND Internal Medicine
DX: M31.6 Other giant cell arteritis (principal); R06.09 Other forms of dyspnea
CPT/HCPCS: 36415; 80053; 83880; 85025; 85651; 86140